=== PATIENT | male | born 1960 | race African-American/Black ===

== ENCOUNTER 2017-01-01 | Emergency (ER) | payer OTHER ==
[~2017-01-01] VITALS: Ht 185.4 cm; Wt 137.9 kg
[~2017-01-01] MED LIST: ADVAIR 250/501 DISK IH; ALBUTEROL SULF8.5 GM IH; PREDNISONE20 MG PO
[2017-01-01 00:29] LABS: HEMATOCRIT 46.2 % (38.0-50.0); MCV 96.7 FL (86-99); MEAN PLAT.VOLUME 9.6 uM^3 (9.0-12.4); PLATELET COUNT 242 K/uL (156-360); RBC DIS.WIDTH-CV 12.6 % (11.8-14.6); RBC DIS.WIDTH-SD 45.1 % (39-53); RED BLOOD COUNT 4.78 M/uL (4.00-5.50); WHITE BLOOD COUNT 7.2 K/uL (4.1-10.2)
[2017-01-01 00:42] LABS: CHLORIDE 104 mEq/L (99-109); POTASSIUM 4.3 mEq/L (3.7-5.4); SODIUM 142 mEq/L (136-147)
[2017-01-01 00:43] LABS: GLUCOSE 104 mg/dL (70-99)
[2017-01-01 00:45] LABS: ANION GAP 9 MEQ/L (2-14)
[2017-01-01 00:47] LABS: GFR ESTIMATE (CALCULATED) > 59 mL/min/
[2017-01-01 00:48] LABS: UREA NITROGEN (BUN) 16 mg/dL (9-23)
[2017-01-01] MEDS ORDERED: VENTOLIN HFA18 GM IH (01:22)
[2017-01-01] MEDS ORDERED: PREDNISONE10 MG PO (01:25)
[2017-01-01] MEDS ORDERED: ADVAIR 100/501 DISK IH (01:25)
[2017-01-01] MEDS ORDERED: PREDNISONE50 MG PO (01:26)
[2017-01-01 01:43] VITALS: BP 130/97
== END 2017-01-01 01:50 | disposition home or self-care (01) ==
LOC: EME
DX: J45.901 Unspecified asthma with (acute) exacerbation (principal)
CPT/HCPCS: 71020; 80048; 85027; 94640; 99281; 99284; J7512